=== PATIENT | male | born 1960 | race Caucasian/White ===

== ENCOUNTER → 2019-01-30 13:35 | Outpatient (CLI) | payer OTHER, SELFPAY ==
--- NOTE | 2019-01-30 | DI.ECHO.S_ITS ---
[place] +---------+ [facility] +---------+ : : [address] : [address] : : : : [id number] : : : : Phone: [phone]---------+ Echocardiogram Report + + :Name: SANDEEP LONG Study Date: 01/30/2019 Height: 74 in : :[facility] Exam Location: [facility] Weight: 250 lb : : Gender: Male BSA: 2.4 m2 : :: 1960 Age: 58 yrs BP: 130/85 mmHg: :Reason For Study: Hypertension : : Performed By: Porsche Page : :Referring: ESPERANZA LIND : + + Interpretation Summary The left ventricle is normal in size. The ejection fraction is estimated to be 55-60%. The right ventricle is mildly dilated. The right ventricular systolic function is normal. There is mild to moderate tricuspid regurgitation. Right ventricular systolic pressure is estimated to be 22 mmHg plus the clinically estimated CVP which cannot be estimated on this exam. The ascending aorta is moderately enlarged. 4.3 cm in diameter. Procedure: A two-dimensional transthoracic echocardiogram with color flow and Doppler was performed. The study quality was technically adequate. There is no prior echocardiogram noted for this patient. The patient was in sinus bradycardia with heart rates between 49-61 bpm during the exam. Left Ventricle: The left ventricle is normal in size. There is normal left ventricular wall thickness. There is no thrombus. The ejection fraction is estimated to be 55-60%. There are no obvious focal wall motion abnormalities noted but poor endocardial definition reduces the sensitivity for the detection of such. Diastolic parameters suggest probable normal left ventricular diastolic function and normal filling pressures. Right Ventricle: The right ventricle is mildly dilated. The right ventricular systolic function is normal. Atria: The left atrium is mildly dilated. The right atrium is mildly dilated. There is no Doppler evidence for an interatrial shunt. Mitral Valve: There is mild mitral annular calcification. There is trace mitral regurgitation. Aortic Valve: The aortic valve is trileaflet. The aortic valve opens well. There is no aortic valve stenosis. There is trace aortic regurgitation. Tricuspid Valve: The tricuspid valve is normal. There is mild to moderate tricuspid regurgitation. Right ventricular systolic pressure is estimated to be 22 mmHg plus the clinically estimated CVP which cannot be estimated on this exam. Pulmonic Valve: The pulmonic valve is not well seen, but is grossly normal. There is trace pulmonic regurgitation. Great Vessels: The aortic root is normal size. The ascending aorta is moderately enlarged. The aortic arch is normal in size. The pulmonary artery is normal size. The inferior vena cava was not visualized. Pericardium/ Pleura There is no pericardial effusion. There is no pleural effusion. MMode/2D Measurements & Calculations LVIDd: 4.9 cm LVOT diam: 2.4 cm LVIDs: 3.3 cm Ao root diam: 3.5 cm FS: 32.4 % asc Aorta Diam: 4.3 cm EPSS: 0.68 cm Ao Arch Diam (Prox Trans): 2.9 cm IVSd: 0.90 cm LVPWd: 0.76 cm LV verdugo. diameter/BSA (cm/m^2): 2.1 LV sys. diameter/BSA (cm/m^2): 1.4 LA A2 area: 22.8 cm2 RA long axis: 5.8 cm LA A4 area: 26.9 cm2 RA area: 23.2 cm2 LA length (vol): 6.5 cm RA vol: 78.7 ml LA vol: 80.1 ml RA : 32.9 ml/m2 LA vol index: 33.5 ml/m2 RVD1 (basal): 4.4 cm TAPSE: 1.9 cm Doppler Measurements & Calculations Ao V2 max: 126.3 cm/sec LVOT Max Nicolás: 82.6 cm/sec Ao V2 mean: 94.5 cm/sec LV V1 max P.7 mmHg Ao max P.4 mmHg LV V1 VTI: 19.3 cm Ao mean P.8 mmHg HARDIK(I,D): 3.1 cm2 Ao V2 VTI: 27.8 cm HARDIK(V,D): 2.9 cm2 sev ratio: 0.69 HARDIK indexed to BSA (cm^2/m^2): 1.3 MV E max nicolás: 75.1 cm/sec TR max nicolás: 231.5 cm/sec MV A max nicolás: 68.8 cm/sec TR max P.5 mmHg MV E/A: 1.1 PA V2 max: 62.3 cm/sec Med Peak E' Nicolás: 7.0 cm/sec PA V2 mean: 46.6 cm/sec E/E' med: 10.7 PA mean P.93 mmHg Lat Peak E' Nicolás: 11.8 cm/sec PA Accel Time: 0.12 sec E/E' lat: 6.4 E/e' average: 8.5 MV dec time: 0.22 sec MV P1/2t: 63.8 msec MV P1/2t max nicolás: 75.8 cm/sec SV(LVOT): 86.6 ml MVA(P12t): 3.4 cm2 Reading Physician:[email or web address]
== END ==
PROVIDERS: Visit Provider Physician Assistant
DX: I07.1 Rheumatic tricuspid insufficiency (principal); I77.89 Other specified disorders of arteries and arterioles; I10 Essential (primary) hypertension
CPT/HCPCS: 93306